=== PATIENT | female | born 1980 | race Caucasian/White ===

== ENCOUNTER → 2021-04-14 | Day surgery (SDC) | payer OTHER ==
[~2021-04-14] VITALS: Ht 160 cm; Wt 81.6 kg
[~2021-04-14] MED LIST: CELEXA20 MG PO; KLONOPIN1 MG PO; LAMOTRIGINE100 MG PO; LEVOTHYROXINE150 MCG PO; MOTRIN600 MG PO; NORCO 5-325 TA1 EACH PO; PERCOCET 5-3251 EACH PO; SEROQUEL50 MG PO
[2021-04-14 07:04] LABS: HCT 39.7 % (37.0-47.0); HGB 12.9 g/dl (12.5-16.0); MCH 30.1 pg (25.0-31.0); MCHC 32.5 g/dL (32.0-36.0); MCV 92.5 fL (78.0-100.0); MPV 9.5 fL (6.0-9.5); RBC 4.29 M/uL (4.20-5.40); RDW 12.9 % (11.5-14.0); WBC 7.4 K/uL (4.0-10.5)
[2021-04-14 07:20] LABS: ALBUMIN 3.2 g/dL (3.4-5.0); BILIRUBIN - TOTAL 0.4 mg/dL (0.2-1.0); BUN/CREAT RATIO (CALC) 12.9 RATIO; CREATININE 0.85 mg/dL (0.51-0.95); GLOBULIN (CALCULATION) 3.5 g/dL; POTASSIUM 3.9 mmol/L (3.5-5.1); TOTAL PROTEIN 6.7 g/dL (6.4-8.2)
== END | disposition home or self-care (01) ==
LOC: FAS 02-23 12:00
PROVIDERS: Orthopaedic Surgery
DX: S83.232A Complex tear of medial meniscus, current injury, left knee, initial encounter (principal); M17.12 Unilateral primary osteoarthritis, left knee; M79.4 Hypertrophy of (infrapatellar) fat pad; M25.862 Other specified joint disorders, left knee; S83.512A Sprain of anterior cruciate ligament of left knee, initial encounter; X58.XXXA Exposure to other specified factors, initial encounter; Y92.9 Unspecified place or not applicable
CPT/HCPCS: 36415; 80053; J1100; J1170; J1885; J2250; J2405; J2704; J3010; J7120